=== PATIENT | male | born 1935 | race Caucasian/White ===

== ENCOUNTER 2019-08-01 10:56 | Observation (INO) ==
[2019-08-01 12:25] LABS: Basophils # (auto) 0.01 K/uL (0-0.2); Basophils % (auto) 0.1 %; Eosinophils # (auto) 0.01 K/uL (0-0.5); Eosinophils % (auto) 0.1 %; Hematocrit (blood only) 44.3 % (42-52); Hemoglobin 15.4 g/dL (14.0-18.0); Immature Granulocytes # (auto) 0.05 K/uL (0.00-0.02); Immature Granulocytes % (auto) 0.4 %; Lymphocytes # (auto) 0.96 K/uL (1.2-3.4); Lymphocytes % (auto) 7.6 %; Mean Corpuscular Hemoglobin 31.3 pg (25-34); Mean Corpuscular Hgb Conc 34.8 g/dL (32-36); Mean Platelet Volume 9.9 fL (7.4-10.4); Monocytes % (auto) 7.1 %; Neutrophils # (auto) 10.67 K/uL (1.4-6.5); Neutrophils % (auto) 84.7 %; Platelet Count 193 K/uL (130-400); RDW Coefficient of Variation 13.2 % (11.5-14.5); RDW Standard Deviation 43.2 fL (36.4-46.3); Red Blood Count 4.92 M/uL (4.7-6.1)
--- NOTE | 2019-08-01 12:42 | CT Scan Report ---
HEAD CT NONCONTRAST CT DOSE: 614.27 mGy.cm HISTORY: syncope/fall eval for ich TECHNIQUE: Multiaxial CT images of the head were performed without the use of intravenous contrast. A utomated exposure control was utilized for this study. A dose lowering technique was utilized adheri ng to the principles of ALARA. Comparison: None. Findings: Small retention cyst within the right maxillary sinus. The mastoid air cells are clear. The calvarium and skull base are intact. There is no mass, hematoma, midline shift, acute infarct. White matter hypodensity is nonspecific but suggestive of microvascular ischemic change. The ventricles an d sulci demonstrate mild age-related involutional changes. Impression: No acute intracranial abnormality. ACT 112: Negative or not required by law. Electronically signed by: Mukul Montana M.D. 08/01/2019 12:40 PM
[2019-08-01 12:43] LABS: Alanine Aminotransferase 29 U/L (12-78); Albumin Level 3.6 gm/dl (3.4-5.0); Aspartate Aminotransferase 18 U/L (15-37); BUN Creatinine Ratio 20.7 (10-20); Blood Urea Nitrogen 21 mg/dl (7-18); Calcium 8.5 mg/dl (8.5-10.1); Carbon Dioxide 24 mmol/L (21-32); Chloride 104 mmol/L (98-107); Est GFR (African American) 79.7; Est GFR (Non-African American) 68.8; Glucose 172 mg/dl (70-99); Magnesium 2.2 mg/dl (1.8-2.4); Potassium 4.5 mmol/L (3.5-5.1); Sodium 137 mmol/L (136-145)
[2019-08-01 12:52] LABS: INR 1.1 (0.9-1.1); Partial Thromboplastin Ratio 0.8; Partial Thromboplastin Time 23.5 Seconds (21.0-31.0); Prothrombin Time 11.2 Seconds (9.0-12.0)
[2019-08-01 12:53] LABS: Albumin Globulin Ratio 1.2 (0.9-2); Alkaline Phosphatase 60 U/L (45-117); Bilirubin,Total 1.1 mg/dl (0.2-1); Globulin 3.1 gm/dl (2.5-4.0); Thyroid Stimulating Hormone 0.584 uIu/ml (0.300-4.500); Total Protein 6.7 gm/dl (6.4-8.2); Troponin I < 0.015 ng/ml (0-0.045)
[2019-08-01] MEDS ORDERED: SODIUM CHLORIDE 0.9% 1000ML 500 ML IV ONE (13:02)
--- NOTE | 2019-08-01 13:02 | Emergency Department Note ---
History of Present Illness General Chief complaint: Fall Stated complaint: FALL, SYNCOPE, BLOOD SUGAR OVER 200, LACERATIONS Time Seen by Provider: 08/01/19 11:49 Source: patient History of Present Illness Provider complaint: Syncope Onset (ago): hour(s) Location: head Pain Consistency: + now resolved Quality: + other (Loss of consciousness) Relieved By: + none Associated symptoms: no chest pain, no fever/chills, no headaches, no malaise, no nausea/vomiting and no shortness of breath This is an 84-year-old male who presents with 3 syncopal episodes occurring late last night. Patient states he was sleeping and he had to go to bathroom. He got up and went to urinate. He was standing up and then the next thing he remembers he is on the ground. He had no symptoms prior to this. He states that he then went to the kitchen and passed out again without any prior symptoms. He went back to bed and before reaching his bed he passed out yet again. He denies having any chest discomfort, shortness of breath, palpitations or lightheadedness prior to passing out. He now complains of left-sided rib pain which he describes as sharp and worse with movement and palpation of his ribs. He denies any abdominal pain. He has no headache or neck pain. He denies any back pain. He has no fever, cough or cold symptoms, black or bloody stools, or diarrhea. He does state that he injured his left arm and left knee and has lacerations there but denies any bony pain. He states his blood sugars have been somewhat high recently in the 200s. He reports his tetanus is up-to-date. Home Medications Home Medications Medication Instructions Recorded Confirmed Type atorvastatin 10 mg PO QAM 08/01/19 08/01/19 History cholecalciferol (vitamin D3) 25 mcg PO HS 08/01/19 08/01/19 History [Vitamin D3] clobetasol 1 applic TOPICAL DAILY PRN 08/01/19 08/01/19 History empagliflozin [Jardiance] 25 mg PO QAM 08/01/19 08/01/19 History finasteride 5 mg PO QDL 08/01/19 08/01/19 History fluocinonide 1 applic TOPICAL DAILY PRN 08/01/19 08/01/19 History glipizide 10 mg PO QAM 08/01/19 08/01/19 History lisinopril 5 mg PO QAM 08/01/19 08/01/19 History metformin 1,000 mg PO BIDM 08/01/19 08/01/19 History sildenafil 25 mg PO DAILY PRN 08/01/19 08/01/19 History tamsulosin 0.4 mg PO QDL 08/01/19 08/01/19 History vitamin B complex 1 tab PO HS 08/01/19 08/01/19 History Allergies Allergy/AdvReac Type Severity Reaction Status Date / Time No Known Allergies Allergy Unverified 08/01/19 11:49 Past Med/Surg History Medical History (Updated 08/01/19 @ 17:58 by Guilherme Kim MD) BPH (benign prostatic hyperplasia) Diabetes High cholesterol HTN (hypertension) Surgical History No significant past surgical history Family History (Updated 08/01/19 @ 16:26 by Bobbi Avila PA-C) Mother Stroke Diabetes Father Coronary heart disease Diabetes Social History (Updated 08/01/19 @ 16:25 by Bobbi Avila PA-C) Preferred Language: Sami Communication Ability: Effective marital status: / Feels Safe at Home: Yes Smoking Status: Former smoker Tobacco Type: cigarettes and cigars ; Smoking End Date: 1967 ; Hx Alcohol Use: Yes Alcohol type: beer Alcohol Intake Frequency: Rarely Hx Substance Use: No Review of Systems See HPI for pertinent positives & negatives. and A total of 10 systems reviewed and were otherwise negative Physical Exam Vital Signs Vital Signs - 24 hr 08/01/19 11:07 08/01/19 12:02 08/01/19 12:20 Temperature 36.8 C Temperature Source Oral Pulse Rate - Lying 85 Pulse Rate - Sitting 96 H Pulse Rate - Standing 98 H Pulse Rate 105 H Pulse Rate [Finger] Pulse Rhythm [Finger] Pulse Strength [Finger] Respiratory Rate 18 Respiratory Effort / Characteristics Non-Labored Spontaneous Respiratory Depth Normal Respiratory Pattern Regular Blood Pressure - Lying 103/57 L Blood Pressure - Sitting 82/50 L Blood Pressure- Standing 95/43 L Blood Pressure 100/55 L Blood Pressure [Right Arm] Blood Pressure Mean 70 Blood Pressure Mean [Right Arm] Blood Pressure Position Sitting Blood Pressure Position [Right Arm] Pulse Oximetry 96 Oxygen Delivery Method Room Air Room Air Sepsis Recent Fever Within 48 Hours No Sepsis New/Unexplained Change in Mental Status No Sepsis Action Taken by Nursing No Action Required 08/01/19 12:57 08/01/19 14:00 08/01/19 16:00 Temperature Temperature Source Pulse Rate - Lying Pulse Rate - Sitting Pulse Rate - Standing Pulse Rate Pulse Rate [Finger] 81 77 79 Pulse Rhythm [Finger] Regular Regular Regular Pulse Strength [Finger] Normal Normal Normal Respiratory Rate 20 18 18 Respiratory Effort / Characteristics Non-Labored Spontaneous Non-Labored Spontaneous Non-Labored Spontaneous Respiratory Depth Normal Normal Normal Respiratory Pattern Regular Regular Regular Blood Pressure - Lying Blood Pressure - Sitting Blood Pressure- Standing Blood Pressure Blood Pressure [Right Arm] 108/55 L 107/58 L 126/69 Blood Pressure Mean Blood Pressure Mean [Right Arm] 72 74 88 Blood Pressure Position Blood Pressure Position [Right Arm] Lying Lying Lying Pulse Oximetry 96 98 96 Oxygen Delivery Method Room Air Room Air Room Air Sepsis Recent Fever Within 48 Hours Sepsis New/Unexplained Change in Mental Status Sepsis Action Taken by Nursing Constitutional: Vital signs reviewed. Eyes: Pupils are equal round reactive to light. Conjunctiva are noninjected. ENT: Pharynx is clear without erythema or exudate. Mucous membranes are moist. Neck supple without meningeal signs. No midline tenderness to the cervical spine. Respiratory: Clear to auscultation bilaterally. Breath sounds are equal bilaterally. Cardiovascular: Regular rate and rhythm. No rubs or gallops. GI: Soft, nondistended and nontender. Bowel sounds are present. Musculoskeletal: No peripheral edema. No bony tenderness to the upper or lower extremities bilaterally. No tenderness to the hips. He has tenderness to palpation of his left lower ribs in the midaxillary line. No flail segment or crepitus. Integumentary: No cyanosis. or jaundice. 3 skin avulsions to the lateral aspect of the left upper arm. 1 skin avulsion to the left knee. No bleeding or signs of infection. Neurological: The patient is awake and alert. No focal deficits. Psychiatric: Normal affect. Not anxious appearing. Course Administered Medications Discontinued Medications Sodium Chloride (Nss 1000ml) 500 mls @ 999 mls/hr IV .Q31M ONE Stop: 08/01/19 13:32 Last Infusion: 08/01/19 14:00 Dose: 0 mls/hr Documented by: [id number] Admin: 08/01/19 13:30 Dose: 999 mls/hr Documented by: [id number] Medical Decision Making Differential Diagnosis Syncope, dysrhythmia, orthostatic hypotension, dehydration, metabolic dera ngement, seizure Medical Records Attestation: I reviewed the patient's medical records. I did perform a limited focused review of portions of the patient's old chart on the electronic medical record. The patient has had no recent pertinent visits to this hospital. Home Medications Current Medication List: was personally reviewed by in Laboratory Data Attestation: I reviewed the patient's lab results. Result diagrams: 08/01/19 12:16 08/01/19 12:16 Lab Results 08/01/19 08/01/19 08/01/19 Range/Units 12:16 12:16 12:16 WBC 12.60 H (4.8-10.8) K/uL RBC 4.92 (4.7-6.1) M/uL Hgb 15.4 (14.0-18.0) g/dL Hct 44.3 (42-52) % MCV 90.0 (80-100) fL MCH 31.3 (25-34) pg MCHC 34.8 (32-36) g/dL RDW Std Deviation 43.2 (36.4-46.3) fL RDW Coeff of Sultana 13.2 (11.5-14.5) % Plt Count 193 (130-400) K/uL MPV 9.9 (7.4-10.4) fL Immature Gran % (Auto) 0.4 % Neut % (Auto) 84.7 % Lymph % (Auto) 7.6 % Marion % (Auto) 7.1 % Eos % (Auto) 0.1 % Baso % (Auto) 0.1 % Neut # (Auto) 10.67 H (1.4-6.5) K/uL Lymph # (Auto) 0.96 L (1.2-3.4) K/uL Marion # (Auto) 0.90 H (0.11-0.59) K/uL Eos # (Auto) 0.01 (0-0.5) K/uL Baso # (Auto) 0.01 (0-0.2) K/uL Immature Gran # (Auto) 0.05 H (0.00-0.02) K/uL PT 11.2 (9.0-12.0) Seconds INR 1.1 (0.9-1.1) APTT 23.5 (21.0-31.0) Seconds PTT Ratio 0.8 Sodium 137 (136-145) mmol/L Potassium 4.5 (3.5-5.1) mmol/L Chloride 104 (98-107) mmol/L Carbon Dioxide 24 (21-32) mmol/L Anion Gap 9.0 (3-11) BUN 21 H (7-18) mg/dl Creatinine 1.00 (0.6-1.4) mg/dl Est Cr Clr Drug Dosing 63.0 ml/min Est GFR ( Amer) 79.7 Est GFR (Non-Af Amer) 68.8 BUN/Creatinine Ratio 20.7 H (10-20) Glucose 172 H (70-99) mg/dl Calcium 8.5 (8.5-10.1) mg/dl Magnesium 2.2 (1.8-2.4) mg/dl Total Bilirubin 1.1 H (0.2-1) mg/dl AST 18 (15-37) U/L ALT 29 (12-78) U/L Alkaline Phosphatase 60 (45-117) U/L Troponin I < 0.015 (0-0.045) ng/ml Total Protein 6.7 (6.4-8.2) gm/dl Albumin 3.6 (3.4-5.0) gm/dl Globulin 3.1 (2.5-4.0) gm/dl Albumin/Globulin Ratio 1.2 (0.9-2) TSH 0.584 (0.300-4.500) uIu/ml Urine Color Urine Appearance (Clear) Urine pH (4.5-7.5) Ur Specific [place] (1.000-1.030) Urine Protein (Negative) Urine Glucose (UA) (Negative) Urine Ketones (Negative) Urine Blood (Negative) Urine Nitrite (Negative) Urine Bilirubin (Negative) Urine Urobilinogen (Negative) Ur Leukocyte Esterase (Negative) 08/01/19 Range/Units 14:50 WBC (4.8-10.8) K/uL RBC (4.7-6.1) M/uL Hgb (14.0-18.0) g/dL Hct (42-52) % MCV (80-100) fL MCH (25-34) pg MCHC (32-36) g/dL RDW Std Deviation (36.4-46.3) fL RDW Coeff of Sultana (11.5-14.5) % Plt Count (130-400) K/uL MPV (7.4-10.4) fL Immature Gran % (Auto) % Neut % (Auto) % Lymph % (Auto) % Marion % (Auto) % Eos % (Auto) % Baso % (Auto) % Neut # (Auto) (1.4-6.5) K/uL Lymph # (Auto) (1.2-3.4) K/uL Marion # (Auto) (0.11-0.59) K/uL Eos # (Auto) (0-0.5) K/uL Baso # (Auto) (0-0.2) K/uL Immature Gran # (Auto) (0.00-0.02) K/uL PT (9.0-12.0) Seconds INR (0.9-1.1) APTT (21.0-31.0) Seconds PTT Ratio Sodium (136-145) mmol/L Potassium (3.5-5.1) mmol/L Chloride (98-107) mmol/L Carbon Dioxide (21-32) mmol/L Anion Gap (3-11) BUN (7-18) mg/dl Creatinine (0.6-1.4) mg/dl Est Cr Clr Drug Dosing ml/min Est GFR ( Amer) Est GFR (Non-Af Amer) BUN/Creatinine Ratio (10-20) Glucose (70-99) mg/dl Calcium (8.5-10.1) mg/dl Magnesium (1.8-2.4) mg/dl Total Bilirubin (0.2-1) mg/dl AST (15-37) U/L ALT (12-78) U/L Alkaline Phosphatase (45-117) U/L Troponin I (0-0.045) ng/ml Total Protein (6.4-8.2) gm/dl Albumin (3.4-5.0) gm/dl Globulin (2.5-4.0) gm/dl Albumin/Globulin Ratio (0.9-2) TSH (0.300-4.500) uIu/ml Urine Color Yellow Urine Appearance Clear (Clear) Urine pH 5.0 (4.5-7.5) Ur Specific H[place]ley 1.039 H (1.000-1.030) Urine Protein Negative (Negative) Urine Glucose (UA) 3+ H (Negative) Urine Ketones 3+ H (Negative) Urine Blood Negative (Negative) Urine Nitrite Negative (Negative) Urine Bilirubin Negative (Negative) Urine Urobilinogen Negative (Negative) Ur Leukocyte Esterase Negative (Negative) Imaging Data Radiologist's Impression: HEAD CT NONCONTRAST CT DOSE: 614.27 mGy.cm HISTORY: syncope/fall eval for ich TECHNIQUE: Multiaxial CT images of the head were performed without the use of intravenous contrast. Automated exposure control was utilized for this study. A dose lowering technique was utilized adhering to the principles of ALARA. Comparison: None. Findings: Small retention cyst within the right maxillary sinus. The mastoid air cells are clear. The calvarium and skull base are intact. There is no mass, hematoma, midline shift, acute infarct. White matter hypodensity is nonspecific but suggestive of microvascular ischemic change. The ventricles and sulci demonstrate mild age-related involutional changes. Impression: No acute intracranial abnormality. ACT 112: Negative or not required by law. Electronically signed by: Mukul Montana M.D. 08/01/2019 12:40 PM XR ribs LT min 3V w [id number] CLINICAL HISTORY: fall eval for fx COMPARISON STUDY: No previous studies for comparison. FINDINGS: Normal study. No evidence for fracture or dislocation. Lungs are clear. IMPRESSION: Negative study ACT 112: Negative or not required by law. The above report was generated using voice recognition software. It may contain grammatical, syntax or spelling errors. Electronically signed by: Aaron Morelos M.D. 08/01/2019 3:21 PM ECG Data Attestation: I personally reviewed and interpreted this ECG as follows: Indication: + syncope Rate (beats per minute): 88 Rhythm: + normal sinus ECG Intervals/blocks: no First degree AV block ECG [place]: + Normal ECG ST segments: no ST elevation ECG Findings: no PVCs Blood Pressure Blood Pressure Findings: Low blood pressure Blood Pressure Disposition: further management by hospitalist [facility] Narrative I did evaluate the patient as noted above. IV access was established. I did place an order for continuous cardiac monitoring. The monitor showed normal sinus rhythm with a rate of 90. I did order and personally review the patient's 12-lead EKG as described above. He has no acute ischemic changes. I did order and personally reviewed the images of the patient's chest/rib x-ray as described above. There is no evidence of pneumonia on chest x-ray or rib fracture. I did order a urine analysis. He does not have a UTI. I did order and review the patient's blood work as noted in the electronic medical record. His white count is slightly elevated. He is not anemic. Electrolytes are unremarkable. Sugar is 172. Opponent is negative. I did order a CT of the head. I did review the images myself as well as the radiology report as described above. There is no evidence of acute intracranial abnormality. I did treat the patient with normal saline IV. I did discuss the test results with the patient and recommended hospitalization for further evaluation of his symptoms. I did discuss the case with the hospitalist and medical case manager. Impression & Plan Syncope, Head injury, Fall, Acute hyperglycemia Discharge Plan Visit Data Chief Complaint: Fall Stated Complaint: FALL, SYNCOPE, BLOOD SUGAR OVER 200, LACERATIONS ED Provider: Guilherme Kim Discharge Problem: Syncope, Head injury, Fall, Acute hyperglycemia Patient Disposition: Being Evaluated by Hospitalist Condition: Good Discharge Instructions Interventions: ED Discharge Assessment Last Done: 08/01/19 17:26 Forms Stand Alone Forms: [facility] Prescriptions Prescriptions: No Action atorvastatin 10 mg tablet 10 mg PO QAM RF: 0 glipizide 10 mg tablet extended release 24hr 10 mg PO QAM RF: 0 fluocinonide 0.05 % ointment 1 applic TOPICAL DAILY PRN (Reason: flare ups) RF: 0 sildenafil 25 mg Tablet 25 mg PO DAILY PRN (Reason: Erectile Dysfunction) RF: 0 tamsulosin 0.4 mg Capsule 0.4 mg PO QDL RF: 0 metformin 1,000 mg Tablet 1,000 mg PO BIDM RF: 0 vitamin B complex Tablet 1 tab PO HS RF: 0 lisinopril 5 mg tablet 5 mg PO QAM RF: 0 clobetasol 0.05 % ointment 1 applic TOPICAL DAILY PRN (Reason: flare ups) RF: 0 finasteride 5 mg Tablet 5 mg PO QDL RF: 0 cholecalciferol (vitamin D3) [Vitamin D3] 25 mcg (1,000 unit) Tablet 25 mcg PO HS RF: 0 Jardiance 25 mg tablet 25 mg PO QAM RF: 0 Referrals Referrals: Angel Braxton DO [Primary Care Provider] -
--- NOTE | 2019-08-01 15:22 | XRay Report ---
XR ribs LT min 3V w CXR1V CLINICAL HISTORY: fall eval for fx COMPARISON STUDY: No previous studies for comparison. FINDINGS: Normal study. No evidence for fracture or dislocation. Lungs are clear. IMPRESSION: Negative study ACT 112: Negative or not required by law. The above report was generated using voice recognition software. It may contain grammatical, syntax or spelling errors. Electronically signed by: Aaron Morelos M.D. 08/01/2019 3:21 PM
[2019-08-01 15:29] LABS: Appearance Urine Clear (Clear); Bilirubin Urine Negative (Negative); Blood Urine Negative (Negative); Color Urine Yellow; Glucose Urine UA 3+ (Negative); Ketones Urine 3+ (Negative); Leukocyte Esterase Urine Negative (Negative); Nitrite Urine Negative (Negative); Protein Urine Negative (Negative); Specific Gravity Urine 1.039 (1.000-1.030); Urobilinogen Urine Negative (Negative)
--- NOTE | 2019-08-01 15:58 | History & Physical Report ---
Date of Service August 01, 2019 Assessment & Plan (1) Syncope: This is an 84 yr old M who has a significant PMH of T2DM, HTN, HLD, BPH, who presents to ED 2/2 to syncope/fall x 3 yesterday. Symptoms occurred shortly after engaging in sexual intercourse. He occasionally takes sildenafil, but did not take last evening. He is on lisinopril as well as Flomax and finasteride which can also cause orthostasis. He does have elevated specific gravity on urinalysis and mildly elevated BUN which would be consistent with mild dehydration. Syncope may be as a result of orthostatic hypotension; however does not match history given patient asymptomatic prior to event which makes me concerned for c ardiac etiology. Admit to oil seal assembler on telemetry for cardiac arrhythmia Obtain echocardiogram to rule out or structural abnormality Obtain carotid Doppler Orthostatic blood pressures every shift IVF 100 cc/h times additional liter (he did receive 1 L in ED) Hold lisinopril, Flomax and finasteride for this evening, reevaluate in a.m. (2) Orthostatic hypotension: as above (3) Abrasion: to left knee and elbow neosporin and dressing changes daily (4) Diabetes: Last A1c 7.7 07/28 Hold metformin, glipizide, Jardiance Lantus/NovoLog per protocol (5) HTN (hypertension): Blood pressure on lower side in ED Orthostatic vital signs are as follows: Lying BP 103/57 pulse 85, sitting BP 82/50 heart rate 96, standing BP 95/43 heart rate 98 +orthostatic hypotension He is on lisinopril for blood pressure control, but also on Flomax and finasteride for BPH Hold lisinopril, Flomax and finasteride this evening Reevaluate in a.m. (6) High cholesterol: Continue statin (7) BPH (benign prostatic hyperplasia): Hold finasteride and Flomax this evening secondary to mild orthostasis Hydrate reevaluate to resume in a.m. Bladder scan PRN (8) DVT prophylaxis: lovenox disposition: admit to tele Follow up: PCP Dr. Braxton upon discharge Pt was seen and examined in collaboration with Dr. Meeks, please see addendum History of Present Illness Chief Complaint: syncope and fall x 3 yesterday. Primary Care Provider: Angel Braxton, This is an 84 yr old M who has a significant PMH of T2DM, HTN, HLD, BPH, who presents to ED 2/2 to syncope/fall x 3 yesterday. He lives alone and has a plant attendant or assistant operator who was visiting last night until 11pm. They underwent intercourse and he then took her home @ midnight. As soon as returning home he had 3 episodes of syncope, 2 in the bathroom and 1 in the kitchen. Unknown duration. He denies head trauma but does have pain to L anterior chest wall, L elbow and R knee. He recalls syncope in the past related to hypo and hyperglycemia, but his blood sugar was okay. He denies prodromal syn including dizzy, lightheaded, tunnel vision, change in vision, diaphoresis, nausea or chest pain prior to episodes. He states he last ate at 5pm so thought maybe it was related to not eating. He does take sildenafil prn for ED, last took Wednesday evening. He did not take it last night. He further denies any chest pain, f/c/s, cough, hemoptysis, n/v/d, change in bowel or bladder habits. During episodes of syncope he denies loss or bowel or bladder. Episodes were not witnessed. Denies recent illness or exposure to covid -19. Allergies Allergy/AdvReac Type Severity Reaction Status Date / Time No Known Allergies Allergy Unverified 08/01/19 11:49 Home Medications Home Medications Medication Instructions Recorded Confirmed Type atorvastatin 10 mg PO QAM 08/01/19 08/01/19 History cholecalciferol (vitamin D3) 25 mcg PO HS 08/01/19 08/01/19 History [Vitamin D3] clobetasol 1 applic TOPICAL DAILY PRN 08/01/19 08/01/19 History empagliflozin [Jardiance] 25 mg PO QAM 08/01/19 08/01/19 History finasteride 5 mg PO QDL 08/01/19 08/01/19 History fluocinonide 1 applic TOPICAL DAILY PRN 08/01/19 08/01/19 History glipizide 10 mg PO QAM 08/01/19 08/01/19 History lisinopril 5 mg PO QAM 08/01/19 08/01/19 History metformin 1,000 mg PO BIDM 08/01/19 08/01/19 History sildenafil 25 mg PO DAILY PRN 08/01/19 08/01/19 History tamsulosin 0.4 mg PO QDL 08/01/19 08/01/19 History vitamin B complex 1 tab PO HS 08/01/19 08/01/19 History Past Med/Surg History Medical History (Updated 08/01/19 @ 17:58 by Guilherme Kim MD) BPH (benign prostatic hyperplasia) Diabetes High cholesterol HTN (hypertension) Surgical History No significant past surgical history Family History (Updated 08/01/19 @ 16:26 by Bobbi Avila PA-C) Mother Stroke Diabetes Father Coronary heart disease Diabetes Social History (Updated 08/01/19 @ 16:25 by Bobbi Avila PA-C) Preferred Language: Green[place]ic Communication Ability: Effective Director Recreation Required: No Beliefs That Will Affect Care: None marital status: / Current Living Situation: Alone Other Information That Helps Us Care for You: No Feels Safe at Home: Yes Safety Concerns: Feels Safe At This Time Smoking Status: Former smoker Tobacco Type: cigarettes and cigars ; Smoking End Date: 1967 ; Hx Alcohol Use: Yes Alcohol type: beer Alcohol Intake Frequency: Rarely Hx Substance Use: No Review of Systems Review of Systems: All systems reviewed & are unremarkable except as noted in HPI & below Physical Exam Physical Exam: Constitutional: WD/WN, vitals as above, NAD, sitting up in bed, pleasant, conversing easily Head: Normocephalic, Atraumatic Eyes: PERRL, conjunctivae normal, anicteric sclerae ENMT: external ear and nose normal, oropharynx normal Neck: trachea midline, no thyromegaly normal visual inspection Respiratory: normal respiratory effort, lungs clear to auscultation, no wheeze, rales, rhonchi. Normal insp/exp effort, no accessory muscle use Cardiovascular: RRR, no murmur, no edema Vessels: no JVD or carotid bruit Chest: normal inspection of chest Abdomen: normal bowel sounds, soft, nontender, no hepatosplenomegaly Musculoskeletal: no cyanosis or clubbing, extremities motor strength 5/5 Skin: no rashes, warm and dry normal turgor , bandaged left knee and left elbow CDI Neurologic: PERRL, EOMI, accommodation nl, no face palsy, no dysarthria CN's II-XI intact bilaterally and moves all extremities Psychiatric: A+Ox3, euthymic affect Lymphatic: no cervical or axillary lymphadenopathy : deferred Results & Data Results & Data ([facility]) Vital Signs (Past 12 Hours) Vital Signs Temp Pulse Pulse Resp BP BP Pulse Ox 08/01/19 14:00 77 18 107/58 L 98 08/01/19 12:57 81 20 108/55 L 96 08/01/19 11:07 36.8 C 105 H 18 100/55 L 96 Laboratory Results Short CBC 08/01/19 Range/Units 12:16 WBC 12.60 H (4.8-10.8) K/uL Hgb 15.4 (14.0-18.0) g/dL Hct 44.3 (42-52) % Plt Count 193 (130-400) K/uL BMP 08/01/19 12:16 Sodium 137 Potassium 4.5 Chloride 104 Carbon Dioxide 24 BUN 21 H Creatinine 1.00 Glucose 172 H Calcium 8.5 Cardiac Enzymes 08/01/19 Range/Units 12:16 Troponin I < 0.015 (0-0.045) ng/ml Liver Function 08/01/19 Range/Units 12:16 Total Bilirubin 1.1 H (0.2-1) mg/dl AST 18 (15-37) U/L ALT 29 (12-78) U/L Alkaline Phosphatase 60 (45-117) U/L Albumin 3.6 (3.4-5.0) gm/dl Urine 08/01/19 Range/Units 14:50 Urine Color Yellow Urine Appearance Clear (Clear) Urine pH 5.0 (4.5-7.5) Ur Specific [place] 1.039 H (1.000-1.030) Urine Protein Negative (Negative) Urine Glucose (UA) 3+ H (Negative) Diagnostic Findings CXR/r xray: FINDINGS: Normal study. No evidence for fracture or dislocation. Lungs are clear. IMPRESSION: Negative study Head CT: Impression: No acute intracranial abnormality. Medications Administered Short CBC 08/01/19 Range/Units 12:16 WBC 12.60 H (4.8-10.8) K/uL Hgb 15.4 (14.0-18.0) g/dL Hct 44.3 (42-52) % Plt Count 193 (130-400) K/uL BMP 08/01/19 12:16 Sodium 137 Potassium 4.5 Chloride 104 Carbon Dioxide 24 BUN 21 H Creatinine 1.00 Glucose 172 H Calcium 8.5 Cardiac Enzymes 08/01/19 Range/Units 12:16 Troponin I < 0.015 (0-0.045) ng/ml Liver Function 08/01/19 Range/Units 12:16 Total Bilirubin 1.1 H (0.2-1) mg/dl AST 18 (15-37) U/L ALT 29 (12-78) U/L Alkaline Phosphatase 60 (45-117) U/L Albumin 3.6 (3.4-5.0) gm/dl Urine 08/01/19 Range/Units 14:50 Urine Color Yellow Urine Appearance Clear (Clear) Urine pH 5.0 (4.5-7.5) Ur Specific [place] 1.039 H (1.000-1.030) Urine Protein Negative (Negative) Urine Glucose (UA) 3+ H (Negative) ECG Rate (beats per minute): 88 Rhythm: normal sinus Code Status & VTE Plan VTE Prophylaxis Plan VTE Prophylaxis will be ordered: Yes Supervising Physician Co-Signing Physician Notes Patient is an 84-year-old male with history of diabetes, hypertension, hyperlipidemia and other medical problems presents with history of 3 episodes of syncope that occurred since yesterday. Denies any precipitating symptoms. He admits to taking sildenafil day before yesterday. Also on lisinopril for blood pressure and Flomax for BPH. Patient admits to not eating well as today. Patient and ambulation to her left elbow and left knee secondary to fall from syncope. Although 3 events were unwitnessed. Please review HPI for complete details of presentation. CT head showed no acute intracranial abnormality. Syncopal episode likely secondary to orthostatic hypotension from low blood pressure. His blood pressure was relatively low while in ED. On exam patient is well-built and nourished, no apparent distress, normocephalic atraumatic, lungs are clear to auscultation, S1-S2, no murmur, abdomen soft nontender, normal bowel sounds, no pedal edema, grossly no focal neurologic deficits. Abrasions noted on left knee, left elbow. Patient is admitted for evaluation of syncope.Syncopal episode likely secondary to orthostatic hypotension from low blood pressure. Also to rule out other causes of syncope. Agree with echo, carotid ultrasound and monitor on telemetry. Check orthostatics. Agree with holding lisinopril, Flomax, sildenafil. Will give IV fluids. Consider cardiology evaluation if any problems with arrhythmia on telemetry. I personally reviewed the record. Patient is interviewed and examined at bedside. Patient's care is coordinated with Bobbi Avila PA-C. Please refer to the documentation above for details of patient's presentation and for discussion of other issues.
--- NOTE | 2019-08-01 15:59 | Electrocardiogram Report ---
Test Reason : Blood Pressure : / mmHG Vent. Rate : 088 BPM Atrial Rate : 088 BPM P-R Int : 162 ms QRS Dur : 086 ms QT Int : 360 ms P-R-T Axes : 067 060 076 degrees QTc Int : 435 ms Normal sinus rhythm Possible Left atrial enlargement Borderline ECG When compared with ECG of 02-JUN-1995 10:21, No significant change was found Confirmed by Axel Garcia ([id number]) on 08/01/2019 3:59:03 PM Referred By: Confirmed By:Axel Garcia
[2019-08-01] MEDS ORDERED: GLUCOSE 10 TABS/TUBE PO PRN (18:02)
[2019-08-01] MEDS ORDERED: ONDANSETRON INJ 2 MG/ML 2 ML VIAL IV PRN (18:02)
[2019-08-01] MEDS ORDERED: POLYETHYLENE (MIRALAX) 17 GM PACK PO PRN (18:02)
[2019-08-01] MEDS ORDERED: SODIUM CHLORIDE 0.9% 1000ML 1,000 ML IV SCH (18:02)
[2019-08-01] MEDS ORDERED: ALUMINUM/MAGNESIUM SUSP 30 ML UDC PO PRN (18:02)
[2019-08-01] MEDS ORDERED: CARBOHYDRATES FOR HYPOGLYCEMIA PO PRN (18:02)
[2019-08-01] MEDS ORDERED: GLUCOSE 40% GEL 15 GM TUBE PO PRN (18:02)
[2019-08-01] MEDS ORDERED: GLUCAGON FOR INJ 1 MG VIAL SQ PRN (18:02)
[2019-08-01] MEDS ORDERED: DEXTROSE 50% 50 ML SYRINGE IV PRN (18:02)
[2019-08-01] MEDS ORDERED: ACETAMINOPHEN 325 MG TAB PO PRN (18:02)
[2019-08-01] MEDS ORDERED: MAGNESIUM HYDROXIDE SUSP 30 ML UDC PO PRN (18:02)
[2019-08-01] MEDS: INSULIN ASPART 100 UNITS/ML 3 ML PEN SC SCH ×2 (19:06→20:26)
--- NOTE | 2019-08-01 20:14 | Ultrasound Report ---
ULTRASOUND OF THE CAROTID ARTERIES CLINICAL HISTORY: syncope COMPARISON STUDY: None. TECHNIQUE: Real-time, grayscale, and color Doppler sonography of the carotid arteries was performed. Imaging reviewed in the transverse and longitudinal planes. NASCET criteria was utilized for stenosis calcification. FINDINGS: There is mild to moderate atherosclerotic plaque present . The peak systolic velocity within the right internal carotid artery is 72 cm/sec. The systolic velocity ratio of right internal to common carotid artery is 0.7. The peak systolic velocity within the left internal carotid artery is 84 cm/sec. The systolic velocity ratio left internal to common carotid artery is 0.6. Antegrade flow is seen in the vertebral arteries. The external carotid arteries are patent. Blood pressure in the right arm measured 131 mm/Hg. Blood pressure in the left arm measured 125 mm/H g. IMPRESSION: No evidence of hemodynamically significant carotid stenosis. ACT 112: Negative or not required by law. Electronically signed by: Missael Montana M.D. 08/01/2019 8:12 PM
[2019-08-01] MEDS: NEOMYCIN/POLYMYX/BACITR OINT 15 GM TUBE EXT SCH (20:21)
[2019-08-01] MEDS: INSULIN GLARGINE SOLOSTAR 100 UNITS/ML 3 ML PEN SC SCH (20:24)
[2019-08-01] MEDS ORDERED: ENOXAPARIN INJ 40 MG/0.4 ML SYR SQ SCH (21:00)
[2019-08-01] MEDS ORDERED: CHOLECALCIFEROL 1,000 UNITS 25 MCG TAB PO SCH (21:00)
[2019-08-01] MEDS ORDERED: VITAMIN B COMPLEX TAB PO SCH (21:00)
[2019-08-02 06:26] LABS: Hematocrit (blood only) 43.1 % (42-52); Hemoglobin 14.3 g/dL (14.0-18.0); Mean Corpuscular Hemoglobin 30.5 pg (25-34); Mean Corpuscular Hgb Conc 33.2 g/dL (32-36); Mean Corpuscular Volume 91.9 fL (80-100); Mean Platelet Volume 9.7 fL (7.4-10.4); Platelet Count 204 K/uL (130-400); RDW Coefficient of Variation 13.6 % (11.5-14.5); RDW Standard Deviation 45.3 fL (36.4-46.3); Red Blood Count 4.69 M/uL (4.7-6.1)
[2019-08-02 07:01] LABS: Calcium 8.3 mg/dl (8.5-10.1); Creatinine Clr Calc Pharmacy 78.2 ml/min; Est GFR (African American) 95.1; Potassium 4.2 mmol/L (3.5-5.1)
[2019-08-02] MEDS: INSULIN ASPART 100 UNITS/ML 3 ML PEN SC SCH ×2 (08:34→13:13)
[2019-08-02] MEDS: INSULIN GLARGINE SOLOSTAR 100 UNITS/ML 3 ML PEN SC SCH (08:36)
--- NOTE | 2019-08-02 08:37 | Discharge Summary ---
Date of Service August 02, 2019 Admission HPI Per Admitting Provider This is an 84 yr old M who has a significant PMH of T2DM, HTN, HLD, BPH, who presents to ED 2/2 to syncope/fall x 3 yesterday. He lives alone and has a residential program manager who was visiting last night until 11pm. They underwent intercourse and he then took her home @ midnight. As soon as returning home he had 3 episodes of syncope, 2 in the bathroom and 1 in the kitchen. Unknown duration. He denies head trauma but does have pain to L anterior chest wall, L elbow and R knee. He recalls syncope in the past related to hypo and hyperglycemia, but his blood sugar was okay. He denies prodromal syn including dizzy, lightheaded, tunnel vision, change in vision, diaphoresis, nausea or chest pain prior to episodes. He states he last ate at 5pm so thought maybe it was related to not eating. He does take sildenafil prn for ED, last took Wednesday evening. He did not take it last night. He further denies any chest pain, f/c/s, cough, hemoptysis, n/v/d, change in bowel or bladder habits. During episodes of syncope he denies loss or bowel or bladder. Episodes were not witnessed. Denies recent illness or exposure to covid -19. Admission Exam Per Admitting Provider Constitutional: WD/WN, vitals as above, NAD, sitting up in bed, pleasant, conversing easily Head: Normocephalic, Atraumatic Eyes: PERRL, conjunctivae normal, anicteric sclerae ENMT: external ear and nose normal, oropharynx normal Neck: trachea midline, no thyromegaly normal visual inspection Respiratory: normal respiratory effort, lungs clear to auscultation, no wheeze, rales, rhonchi. Normal insp/exp effort, no accessory muscle use Cardiovascular: RRR, no murmur, no edema Vessels: no JVD or carotid bruit Chest: normal inspection of chest Abdomen: normal bowel sounds, soft, nontender, no hepatosplenomegaly Musculoskeletal: no cyanosis or clubbing, extremities motor strength 5/5 Skin: no rashes, warm and dry normal turgor , bandaged left knee and left elbow CDI Neurologic: PERRL, EOMI, accommodation nl, no face palsy, no dysarthria CN's II-XI intact bilaterally and moves all extremities Psychiatric: A+Ox3, euthymic affect Lymphatic: no cervical or axillary lymphadenopathy : deferred Principal Diagnosis (1) Syncope: (2) Orthostatic hypotension: (3) Abrasion: (4) Diabetes: (5) HTN (hypertension): (6) High cholesterol: (7) BPH (benign prostatic hyperplasia) Discharge Exam ROS-No Headache, No Visual Changes, No Nausea, No Vomiting, No Fever, No Chills, No Neck Pain or Stiffness, No Chest Pain, No Palpitations, No SOB, No JARQUIN, No Cough, No Sputum, No Wheezing, No Abdominal Pain, No Diarrhea, No Hematemesis, No Hemoptysis, No Unexpected Weight Loss, No Flank pain, No Melena, No Hematochezia, No Frequency, No Urgency, No Burning, No Hematuria, No Rashes, No Diaphoresis. Appetite is Normal Physical Exam Gen-AAO x 3, NAD, Afebrile Head-NCAT, EOMI, PERRLA, Anicteric Sclera, No Posterior Pharyngeal Erythema Neck-Supple, No JVD, No Thyromegaly, No Masses, No LAD, No Bruits Lungs-Clear to Auscultation Bilaterally, No Rales, No Rhonchi, No Wheezing, No Crepitus Chest-No S4, +S1, +S2, No S3, No Murmurs, No Rubs, No Gallops, No Ectopy Abdomen-Soft, Bowel Sounds Present, Non Tender, Non Distended, No Hepatomegaly, No Splenomegaly, No Palpable Masses, No Rebound, No Rigidity, No Guarding Musculoskeletal-Full Range of Motion Bilaterally, No CVAT Extremities-No Cyanosis, No Clubbing, No Edema Nuero-Cranial Nerves II-XII grossly intact, Motor WNL, DTRs WNL, Strength WNL, Non Focal Psych-Normal Mood Discharge Data Allergies Allergy/AdvReac Type Severity Reaction Status Date / Time No Known Allergies Allergy Unverified 08/01/19 11:49 Consultations 08/01/19 15:36 ED Decision to Admit Stat 08/01/19 18:02 Consult Case Management - Discharge Planning Routine Ordered Studies 08/01/19 12:02 CT head/brain wo con Stat 08/01/19 18:02 US carotid doppler BI Routine 08/02/19 08/02/19 08/02/19 Range/Units 07:52 06:03 06:03 WBC 9.80 (4.8-10.8) K/uL RBC 4.69 L (4.7-6.1) M/uL Hgb 14.3 (14.0-18.0) g/dL Hct 43.1 (42-52) % MCV 91.9 (80-100) fL MCH 30.5 (25-34) pg MCHC 33.2 (32-36) g/dL RDW Std Deviation 45.3 (36.4-46.3) fL RDW Coeff of Sultana 13.6 (11.5-14.5) % Plt Count 204 (130-400) K/uL MPV 9.7 (7.4-10.4) fL Immature Gran % (Auto) % Neut % (Auto) % Lymph % (Auto) % [place] % (Auto) % Eos % (Auto) % Baso % (Auto) % Neut # (Auto) (1.4-6.5) K/uL Lymph # (Auto) (1.2-3.4) K/uL [place] # (Auto) (0.11-0.59) K/uL Eos # (Auto) (0-0.5) K/uL Baso # (Auto) (0-0.2) K/uL Immature Gran # (Auto) (0.00-0.02) K/uL PT (9.0-12.0) Seconds INR (0.9-1.1) APTT (21.0-31.0) Seconds PTT Ratio Sodium 140 (136-145) mmol/L Potassium 4.2 (3.5-5.1) mmol/L Chloride 108 H (98-107) mmol/L Carbon Dioxide 25 (21-32) mmol/L Anion Gap 7.0 (3-11) BUN 21 H (7-18) mg/dl Creatinine 0.80 (0.6-1.4) mg/dl Est Cr Clr Drug Dosing 78.2 ml/min Est GFR ( Amer) 95.1 Est GFR (Non-Af Amer) 82.0 BUN/Creatinine Ratio 26.0 H (10-20) Glucose 65 L (70-99) mg/dl POC Glucose 77 (70-99) mg/dl Calcium 8.3 L (8.5-10.1) mg/dl Magnesium (1.8-2.4) mg/dl Total Bilirubin (0.2-1) mg/dl AST (15-37) U/L ALT (12-78) U/L Alkaline Phosphatase (45-117) U/L Troponin I (0-0.045) ng/ml Total Protein (6.4-8.2) gm/dl Albumin (3.4-5.0) gm/dl Globulin (2.5-4.0) gm/dl Albumin/Globulin Ratio (0.9-2) TSH (0.300-4.500) uIu/ml Urine Color Urine Appearance (Clear) Urine pH (4.5-7.5) Ur Specific [place] (1.000-1.030) Urine Protein (Negative) Urine Glucose (UA) (Negative) Urine Ketones (Negative) Urine Blood (Negative) Urine Nitrite (Negative) Urine Bilirubin (Negative) Urine Urobilinogen (Negative) Ur Leukocyte Esterase (Negative) 08/01/19 08/01/19 08/01/19 Range/Units 20:26 18:14 14:50 WBC (4.8-10.8) K/uL RBC (4.7-6.1) M/uL Hgb (14.0-18.0) g/dL Hct (42-52) % MCV (80-100) fL MCH (25-34) pg MCHC (32-36) g/dL RDW Std Deviation (36.4-46.3) fL RDW Coeff of Sultana (11.5-14.5) % Plt Count (130-400) K/uL MPV (7.4-10.4) fL Immature Gran % (Auto) % Neut % (Auto) % Lymph % (Auto) % [place] % (Auto) % Eos % (Auto) % Baso % (Auto) % Neut # (Auto) (1.4-6.5) K/uL Lymph # (Auto) (1.2-3.4) K/uL [place] # (Auto) (0.11-0.59) K/uL Eos # (Auto) (0-0.5) K/uL Baso # (Auto) (0-0.2) K/uL Immature Gran # (Auto) (0.00-0.02) K/uL PT (9.0-12.0) Seconds INR (0.9-1.1) APTT (21.0-31.0) Seconds PTT Ratio Sodium (136-145) mmol/L Potassium (3.5-5.1) mmol/L Chloride (98-107) mmol/L Carbon Dioxide (21-32) mmol/L Anion Gap (3-11) BUN (7-18) mg/dl Creatinine (0.6-1.4) mg/dl Est Cr Clr Drug Dosing ml/min Est GFR ( Amer) Est GFR (Non-Af Amer) BUN/Creatinine Ratio (10-20) Glucose (70-99) mg/dl POC Glucose 144 H 167 H (70-99) mg/dl Calcium (8.5-10.1) mg/dl Magnesium (1.8-2.4) mg/dl Total Bilirubin (0.2-1) mg/dl AST (15-37) U/L ALT (12-78) U/L Alkaline Phosphatase (45-117) U/L Troponin I (0-0.045) ng/ml Total Protein (6.4-8.2) gm/dl Albumin (3.4-5.0) gm/dl Globulin (2.5-4.0) gm/dl Albumin/Globulin Ratio (0.9-2) TSH (0.300-4.500) uIu/ml Urine Color Yellow Urine Appearance Clear (Clear) Urine pH 5.0 (4.5-7.5) Ur Specific [place] 1.039 H (1.000-1.030) Urine Protein Negative (Negative) Urine Glucose (UA) 3+ H (Negative) Urine Ketones 3+ H (Negative) Urine Blood Negative (Negative) Urine Nitrite Negative (Negative) Urine Bilirubin Negative (Negative) Urine Urobilinogen Negative (Negative) Ur Leukocyte Esterase Negative (Negative) 08/01/19 08/01/19 08/01/19 Range/Units 12:16 12:16 12:16 WBC 12.60 H (4.8-10.8) K/uL RBC 4.92 (4.7-6.1) M/uL Hgb 15.4 (14.0-18.0) g/dL Hct 44.3 (42-52) % MCV 90.0 (80-100) fL MCH 31.3 (25-34) pg MCHC 34.8 (32-36) g/dL RDW Std Deviation 43.2 (36.4-46.3) fL RDW Coeff of Sultana 13.2 (11.5-14.5) % Plt Count 193 (130-400) K/uL MPV 9.9 (7.4-10.4) fL Immature Gran % (Auto) 0.4 % Neut % (Auto) 84.7 % Lymph % (Auto) 7.6 % [place] % (Auto) 7.1 % Eos % (Auto) 0.1 % Baso % (Auto) 0.1 % Neut # (Auto) 10.67 H (1.4-6.5) K/uL Lymph # (Auto) 0.96 L (1.2-3.4) K/uL [place] # (Auto) 0.90 H (0.11-0.59) K/uL Eos # (Auto) 0.01 (0-0.5) K/uL Baso # (Auto) 0.01 (0-0.2) K/uL Immature Gran # (Auto) 0.05 H (0.00-0.02) K/uL PT 11.2 (9.0-12.0) Seconds INR 1.1 (0.9-1.1) APTT 23.5 (21.0-31.0) Seconds PTT Ratio 0.8 Sodium 137 (136-145) mmol/L Potassium 4.5 (3.5-5.1) mmol/L Chloride 104 (98-107) mmol/L Carbon Dioxide 24 (21-32) mmol/L Anion Gap 9.0 (3-11) BUN 21 H (7-18) mg/dl Creatinine 1.00 (0.6-1.4) mg/dl Est Cr Clr Drug Dosing 63.0 ml/min Est GFR ( Amer) 79.7 Est GFR (Non-Af Amer) 68.8 BUN/Creatinine Ratio 20.7 H (10-20) Glucose 172 H (70-99) mg/dl POC Glucose (70-99) mg/dl Calcium 8.5 (8.5-10.1) mg/dl Magnesium 2.2 (1.8-2.4) mg/dl Total Bilirubin 1.1 H (0.2-1) mg/dl AST 18 (15-37) U/L ALT 29 (12-78) U/L Alkaline Phosphatase 60 (45-117) U/L Troponin I < 0.015 (0-0.045) ng/ml Total Protein 6.7 (6.4-8.2) gm/dl Albumin 3.6 (3.4-5.0) gm/dl Globulin 3.1 (2.5-4.0) gm/dl Albumin/Globulin Ratio 1.2 (0.9-2) TSH 0.584 (0.300-4.500) uIu/ml Urine Color Urine Appearance (Clear) Urine pH (4.5-7.5) Ur Specific [place] (1.000-1.030) Urine Protein (Negative) Urine Glucose (UA) (Negative) Urine Ketones (Negative) Urine Blood (Negative) Urine Nitrite (Negative) Urine Bilirubin (Negative) Urine Urobilinogen (Negative) Ur Leukocyte Esterase (Negative) Hospital Course (1) Syncope: This is an 84 yr old M who has a significant PMH of T2DM, HTN, HLD, BPH, who presents to ED 2/2 to syncope/fall x 3 yesterday. Symptoms occurred shortly after engaging in sexual intercourse. He occasionally takes sildenafil, but did not take last evening. He is on lisinopril as well as Flomax and finasteride which can also cause orthostasis. He does have elevated specific gravity on urinalysis and mildly elevated BUN which would be consistent with mild dehydration. Syncope may be as a result of orthostatic hypotension Admit to auger supervisor on telemetry for cardiac arrhythmia Obtain echocardiogram to rule out or structural abnormality Obtain carotid Doppler Orthostatic blood pressures normal Hold lisinopril, Flomax and finasteride for this evening, reevaluate in a.m. (2) Orthostatic hypotension: as above (3) Abrasion: to left knee and elbow neosporin and dressing changes daily (4) Diabetes: Last A1c 7.7 07/28 Hold metformin, glipizide, Jardiance Lantus/NovoLog per protocol (5) HTN (hypertension): Blood pressure on lower side in ED Orthostatic vital signs are as follows: Lying BP 103/57 pulse 85, sitting BP 82/50 heart rate 96, standing BP 95/43 heart rate 98 +orthostatic hypotension He is on lisinopril for blood pressure control, but also on Flomax and finasteride for BPH Hold lisinopril, Flomax and finasteride this evening (6) High cholesterol: Continue statin (7) BPH (benign prostatic hyperplasia): Resume finasteride and Flomax this evening secondary to mild orthostasis Stay Hydrated (8) DVT prophylaxis: lovenox disposition: Home today Follow up: PCP Dr. Braxton upon discharge Total Time Total Time Spent Total Time Spent (In Minutes): 45 mins Total Time Includes: Examination of the Patient, Discharge Planning, Medication Reconciliation and Communication With Other Providers Discharge Plan Discharge Items Patient Disposition: Home - Self-Care Reason For Visit: SYNCOPE,ORTHOSTATIC HYPOTENSION Discharge Diagnosis: (1) Syncope: (2) Orthostatic hypotension: (3) Abrasion: (4) Diabetes: (5) HTN (hypertension): (6) High cholesterol: (7) BPH (benign prostatic hyperplasia) Condition on Discharge: Good Activity: Resume your previous activity Lifting: Gradually increase as tolerated Bathing: No limitations Sexual Activity: When tolerated Driving/Machine Use: No limitations Weightbearing: Full weightbearing Non-emergency contact: Primary Care Provider Call non-emergency contact if: you have any medication questions Follow-up/Referrals: Angel Braxton, [Primary Care Provider] - Diet: Carb Consistent or DM2 and Heart Healthy Addtl Attending Provider Instructions: Monitor your Blood Pressure, get a home BP Kit, Maintain good hydration, Monitor Sugars, Take Flomax and Lisinopril at bedtime Pending Studies at Discharge: No Stand-Alone Forms: My [facility] Nutrition, Smoking Cessation Medications and DC Order Prescriptions: Continued atorvastatin 10 mg tablet 10 mg PO QAM RF: 0 glipizide 10 mg tablet extended release 24hr 10 mg PO QAM RF: 0 fluocinonide 0.05 % ointment 1 applic TOPICAL DAILY PRN (Reason: flare ups) RF: 0 sildenafil 25 mg Tablet 25 mg PO DAILY PRN (Reason: Erectile Dysfunction) RF: 0 tamsulosin 0.4 mg Capsule 0.4 mg PO QDL RF: 0 metformin 1,000 mg Tablet 1,000 mg PO BIDM RF: 0 vitamin B complex Tablet 1 tab PO HS RF: 0 lisinopril 5 mg tablet 5 mg PO QAM RF: 0 clobetasol 0.05 % ointment 1 applic TOPICAL DAILY PRN (Reason: flare ups) RF: 0 finasteride 5 mg Tablet 5 mg PO QDL RF: 0 cholecalciferol (vitamin D3) [Vitamin D3] 25 mcg (1,000 unit) Tablet 25 mcg PO HS RF: 0 Jardiance 25 mg tablet 25 mg PO QAM RF: 0 Discharge Orders: Discharge Order (Routine); Ordered 08/02/19 Ordered By: Lyle Zuniga Admission Data Admit Date/Time: 08/01/19 15:45 Attending Provider: Lyle Zuniga Admit Provider: Esdras Meeks Primary Care Provider: Angel Braxton Other Providers: Esdras Meeks
[2019-08-02] MEDS: NEOMYCIN/POLYMYX/BACITR OINT 15 GM TUBE EXT SCH (08:38)
[2019-08-02] MEDS ORDERED: ATORVASTATIN 10 MG TAB PO SCH (09:00)
--- NOTE | 2019-08-02 13:46 | Electrocardiogram Report ---
Test Reason : Blood Pressure : / mmHG Vent. Rate : 067 BPM Atrial Rate : 067 BPM P-R Int : 168 ms QRS Dur : 096 ms QT Int : 402 ms P-R-T Axes : 064 060 068 degrees QTc Int : 424 ms Normal sinus rhythm with occasional Premature atrial complexes Normal ECG When compared with ECG of 01-AUG-2019 12:21, No significant change was found Confirmed by Axel Garcia ([id number]) on 08/02/2019 1:46:16 PM Referred By: REFERRED SELF Confirmed By:Axel Garcia
== END 2019-08-02 14:19 | disposition home or self-care (01) ==
LOC: 2N 10:56 → ED 10:56 → SUATTDRO 15:45 → 2N 17:26